=== PATIENT | female | born 1985 | race Caucasian/White ===

== ENCOUNTER 2020-02-06 10:46 | Outpatient (CLI) | payer OTHER, SELFPAY ==
[2020-02-07 06:44] LABS: SARS-CoV-2 RNA PCR Negative
== END 2020-02-06 10:47 | disposition home or self-care (01) ==
LOC: CHSLAB 10:51
PROVIDERS: Visit Provider Physician Assistant
DX: R68.89 Other general symptoms and signs (principal); Z20.828 Contact with and (suspected) exposure to other viral communicable diseases
CPT/HCPCS: 87635; C9803; U0003

== ENCOUNTER 2020-02-18 17:48 | Outpatient (CLI) | payer OTHER, SELFPAY ==
[2020-02-20 18:30] LABS: SARS-CoV-2 RNA PCR Negative
== END 2020-02-18 17:49 | disposition home or self-care (01) ==
LOC: CHSLAB 17:51
PROVIDERS: PCP Family Medicine; Visit Provider Family Medicine
DX: R68.89 Other general symptoms and signs (principal)
CPT/HCPCS: 87635; C9803; U0003

== ENCOUNTER 2020-09-08 11:00 | Outpatient (RCR) | payer OTHER, SELFPAY ==
[2020-09-08 10:14] VITALS: BMI 41.0
[2020-09-08 10:21] VITALS: BMI 41.0
== END 2020-11-24 07:07 | disposition home or self-care (01) ==
LOC: ANHDMC 11:00
PROVIDERS: PCP Family Medicine; Visit Provider Obstetrics & Gynecology
DX: O24.319 Unspecified pre-existing diabetes mellitus in pregnancy, unspecified trimester (principal); Z3A.00 Weeks of gestation of pregnancy not specified; Z71.89 Other specified counseling; Z71.3 Dietary counseling and surveillance
CPT/HCPCS: 97802; G0108

== ENCOUNTER 2020-09-16 16:07 | Outpatient (CLI) | payer OTHER, SELFPAY ==
[2020-09-16 16:29] VITALS: BP 138/95; PULSE 113
[2020-09-16 16:31] VITALS: BP 129/82; PULSE 108
[2020-09-16 16:46] VITALS: BP 135/90; PULSE 101
[2020-09-16 16:55] LABS: Basophils Percent Auto 0.1 % (0.2-1.2); Eosinophils Absolute Auto 0.1 K/mm3 (0-0.3); Eosinophils Percent Auto 0.4 % (0-4.4); Hematocrit 36.6 % (37.0-47.0); Hemoglobin 12.4 g/dL (12.0-15.0); Immature Granulocyte Absolute 0.04 K/mm3 (0.00-0.031); Immature Granulocyte Percent A 0.4 % (0-0.5); Lymphocytes Absolute Auto 2.63 K/mm3 (0.9-3.2); Lymphocytes Percent Auto 23.6 % (18.3-44.2); Mean Corpuscular HGB Conc 33.9 g/dl (32-36); Mean Corpuscular Hemoglobin 29.4 pg (26-34); Mean Corpuscular Volume 86.7 fl (80-100); Monocytes Absolute Auto 0.6 K/mm3 (0.1-0.6); Monocytes Percent Auto 5.5 % (2.6-8.5); Neutrophils Absolute Auto 7.8 K/mm3 (1.3-6.7); Platelet Count Result 187 k/mm3 (150-375); Red Blood Count 4.22 M/mm3 (4.2-5.4); White Blood Count 11.2 K/mm3 (4.5-10.0)
[2020-09-16 17:01] VITALS: BP 130/83; PULSE 92
[2020-09-16 17:02] LABS: Add Urine Microscopic? YES; Appearance Urine Cloudy (Clear); Bacteria Urine 1+ /hpf; Bilirubin Urine Negative (Negative); Blood Urine Negative (Negative); Color Urine Yellow (Yellow); Glucose Urine UA Negative (Negative); Ketones Urine Negative (Negative); Leukocyte Esterase Ur Trace LEU/UL (NEGATIVE); Mucus Urine Rare /lpf; Nitrate Urine Negative (Negative); Protein Urine Negative (Negative); Specific Grav Ur 1.009 (1.001-1.035); Squamous Epithelial Cell Urine Many /hpf (Few); Urobilinogen Urine Negative mg/dL (<2.0); WBC Urine 0-3 /hpf (0-3)
[2020-09-16 17:08] LABS: Alanine Aminotransferase 15 U/L (4-35); Albumin Level 3.3 g/dL (3.5-5.1); Alkaline Phosphatase 139 U/L (38-126); Anion Gap 7 mmol/L (8-16); Aspartate Amino Transferase 27 U/L (14-36); Bilirubin,Total 0.2 mg/dL (0.2-1.3); Blood Urea Nitrogen 5 mg/dL (7-17); Calcium 8.7 mg/dL (8.4-10.2); Carbon Dioxide 19 mmol/L (22-30); Chloride 110 mmol/L (98-107); Estimated Glomerular Filt Rate > 60; Glucose 159 mg/dL (65-105); Potassium 3.7 mmol/L (3.4-5.0); Sodium 136 mmol/L (137-145); Uric Acid 4.2 mg/dL (2.5-7.5)
[2020-09-16 17:10] LABS: Creatinine Urine 68.4 mg/dL; Total Protein Urine Random 14 mg/dL
== END 2020-09-16 17:15 | disposition home or self-care (01) ==
LOC: ANHOBOP 16:12 → ANHLDR 16:13
PROVIDERS: PCP Family Medicine; Visit Provider Obstetrics & Gynecology
DX: O13.9 Gestational [pregnancy-induced] hypertension without significant proteinuria, unspecified trimester (principal); Z3A.00 Weeks of gestation of pregnancy not specified
CPT/HCPCS: 36415; 59025; 80053; 81001; 82570; 84156; 84550; 85025; 87086; 87088; 99199

== ENCOUNTER 2020-09-28 15:45 | Outpatient (CLI) | payer OTHER, SELFPAY ==
[2020-09-28] VITALS (11 sets, daily range): BP systolic 143–161; BP diastolic 83–92; PULSE 88–99
[2020-09-28 16:33] LABS: Basophils Percent Auto 0.1 % (0.2-1.2); Eosinophils Percent Auto 0.4 % (0-4.4); Hemoglobin 12.1 g/dL (12.0-15.0); Immature Granulocyte Absolute 0.05 K/mm3 (0.00-0.031); Immature Granulocyte Percent A 0.5 % (0-0.5); Lymphocytes Absolute Auto 2.14 K/mm3 (0.9-3.2); Lymphocytes Percent Auto 19.9 % (18.3-44.2); Mean Corpuscular HGB Conc 33.6 g/dl (32-36); Mean Corpuscular Hemoglobin 29.6 pg (26-34); Mean Platelet Volume 12.4 fl (7.4-10.4); Monocytes Absolute Auto 0.5 K/mm3 (0.1-0.6); Monocytes Percent Auto 4.9 % (2.6-8.5); Neutrophils Percent Auto 74.2 % (45.5-73.1); Platelet Count Result 149 k/mm3 (150-375); Red Blood Count 4.09 M/mm3 (4.2-5.4); Red Cell Distribution Width 13.2 % (11.5-14.5); White Blood Count 10.8 K/mm3 (4.5-10.0)
[2020-09-28 16:40] LABS: Add Urine Microscopic? YES; Appearance Urine Cloudy (Clear); Bacteria Urine 1+ /hpf; Bilirubin Urine Negative (Negative); Blood Urine Negative (Negative); Color Urine Yellow (Yellow); Glucose Urine UA Negative (Negative); Ketones Urine Negative (Negative); Leukocyte Esterase Ur Trace LEU/UL (NEGATIVE); Nitrate Urine Negative (Negative); Protein Urine Negative (Negative); Specific Grav Ur 1.008 (1.001-1.035); Squamous Epithelial Cell Urine Many /hpf (Few); Urobilinogen Urine Negative mg/dL (<2.0)
[2020-09-28 16:46] LABS: Alanine Aminotransferase 17 U/L (4-35); Albumin Level 3.2 g/dL (3.5-5.1); Alkaline Phosphatase 157 U/L (38-126); Anion Gap 5 mmol/L (8-16); Aspartate Amino Transferase 33 U/L (14-36); Bilirubin,Total 0.2 mg/dL (0.2-1.3); Blood Urea Nitrogen 7 mg/dL (7-17); Calcium 8.8 mg/dL (8.4-10.2); Carbon Dioxide 22 mmol/L (22-30); Chloride 109 mmol/L (98-107); Estimated Glomerular Filt Rate > 60; Glucose 79 mg/dL (65-105); Potassium 3.8 mmol/L (3.4-5.0); Sodium 136 mmol/L (137-145); Uric Acid 5.2 mg/dL (2.5-7.5)
[2020-09-28] MEDS: LABETALOL HCL 100 MG TABLET PO (17:17)
[2020-09-28 17:19] LABS: Creatinine Urine 51.7 mg/dL; Total Protein Urine Random 17 mg/dL; Ur Ttl Prot Creatinine Ratio 0.33 mg/mg (0-0.20)
--- NOTE | 2020-09-29 06:32 | PM.OBTRLD ---
OB - Triage/Final Diagnosis Visit Information Date of evaluation: 09/28/20 Reason for evaluation: other (Gestational hypertension) Comments/Additional reasons for admission: I have assessed the risk for this patient, Carine Gruber, and determined that she would benefit from observation care. Evaluation Laboratory results: Laboratory Tests 09/28/20 09/28/20 09/28/20 16:18 16:18 16:18 WBC 10.8 H RBC 4.09 L Hgb 12.1 Hct 36.0 L MCV 88.0 MCH 29.6 MCHC 33.6 RDW 13.2 Plt Count 149 L MPV 12.4 H Immature Gran % (Auto) 0.5 Neut % (Auto) 74.2 H Lymph % (Auto) 19.9 Harlan % (Auto) 4.9 Eos % (Auto) 0.4 Baso % (Auto) 0.1 L Lymph # (Auto) 2.14 Harlan # (Auto) 0.5 Eos # (Auto) 0.0 Baso # (Auto) 0.0 Abs Immat Gran (auto) 0.05 H Absolute Neuts (auto) 8.0 H Absolute Nucleated RBC 0.0 Nucleated RBC % 0.0 Sodium 136 L Potassium 3.8 Chloride 109 H Carbon Dioxide 22 Anion Gap 5 L BUN 7 Creatinine 0.60 L Estim Creat Clear Calc Not Reportable Estimated GFR > 60 Glucose 79 Uric Acid 5.2 Calcium 8.8 Total Bilirubin 0.2 AST 33 ALT 17 Alkaline Phosphatase 157 H Total Protein 6.0 L Albumin 3.2 L Urine Color Urine Appearance Urine pH Ur Specific Mcrae Urine Protein Urine Glucose (UA) Urine Ketones Ur Blood (Man) Urine Nitrate Urine Bilirubin Urine Urobilinogen Ur Leukocyte Esterase Urine RBC Urine WBC Ur Squamous Epith Cells Urine Bacteria U Random Total Protein 17 Urine Creatinine 51.7 Protein/Creat Ratio 2 0.33 H 09/28/20 16:18 WBC RBC Hgb Hct MCV MCH MCHC RDW Plt Count MPV Immature Gran % (Auto) Neut % (Auto) Lymph % (Auto) Harlan % (Auto) Eos % (Auto) Baso % (Auto) Lymph # (Auto) Harlan # (Auto) Eos # (Auto) Baso # (Auto) Abs Immat Gran (auto) Absolute Neuts (auto) Absolute Nucleated RBC Nucleated RBC % Sodium Potassium Chloride Carbon Dioxide Anion Gap BUN Creatinine Estim Creat Clear Calc Estimated GFR Glucose Uric Acid Calcium Total Bilirubin AST ALT Alkaline Phosphatase Total Protein Albumin Urine Color Yellow Urine Appearance Cloudy H Urine pH 6.0 Ur Specific Mcrae 1.008 Urine Protein Negative Urine Glucose (UA) Negative Urine Ketones Negative Ur Blood (Man) Negative Urine Nitrate Negative Urine Bilirubin Negative Urine Urobilinogen Negative Ur Leukocyte Esterase Trace H Urine RBC 3-5 H Urine WBC 7-9 H Ur Squamous Epith Cells Many H Urine Bacteria 1+ H U Random Total Protein Urine Creatinine Protein/Creat Ratio 2 Vital signs: Vital Signs - 24 hr 09/28/20 16:12 09/28/20 16:16 09/28/20 16:31 Pulse Rate 91 95 89 Blood Pressure 151/91 H 161/92 H 153/92 H Blood Pressure [Left Arm] 09/28/20 16:46 09/28/20 17:01 09/28/20 17:16 Pulse Rate 88 88 99 Blood Pressure 143/91 H 146/90 H 151/89 H Blood Pressure [Left Arm] 09/28/20 17:17 09/28/20 17:27 09/28/20 17:31 Pulse Rate 95 99 95 Blood Pressure 145/91 H Blood Pressure [Left Arm] 151/89 H 09/28/20 17:46 09/28/20 18:01 Pulse Rate 88 90 Blood Pressure 147/83 H 153/89 H Blood Pressure [Left Arm]
== END 2020-09-28 18:09 | disposition home or self-care (01) ==
LOC: ANHOBOP 15:51 → ANHOBPP 15:57
PROVIDERS: PCP Family Medicine; Visit Provider Obstetrics & Gynecology
DX: O13.9 Gestational [pregnancy-induced] hypertension without significant proteinuria, unspecified trimester (principal)
CPT/HCPCS: 36415; 59025; 80053; 81001; 82570; 84156; 84550; 85025; 87086; 87088; 99199; A9270

== ENCOUNTER 2020-10-06 15:52 | Inpatient (IN) | payer OTHER, SELFPAY ==
[2020-10-06] VITALS (34 sets, daily range): BP systolic 120–185; BP diastolic 65–105; PULSE 90–104; TEMP 36.4; O2SAT 94; BMI 47.5
--- NOTE | ~2020-10-06 | XR_ITS ---
EXAMINATION: XR chest 1V portable INDICATION: Hypoxia, shortness of breath TECHNIQUE: Portable AP chest at 1322 hours COMPARISON: None available FINDINGS: There are minimal opacities of the mid and lower lung zones. No pleural effusion or pneumot horax is identified. The cardiomediastinal silhouette is normal. The visualized osseous structures ar e unremarkable. IMPRESSION: 1. Minimal opacities of the mid and lower lung zones, likely atelectasis. Reviewed, dictated and finalized at location B.
[2020-10-06 16:39] LABS: Basophils Percent Auto 0.2 % (0.2-1.2); Eosinophils Absolute Auto 0.1 K/mm3 (0-0.3); Eosinophils Percent Auto 0.7 % (0-4.4); Hematocrit 35.1 % (37.0-47.0); Hemoglobin 11.7 g/dL (12.0-15.0); Immature Granulocyte Absolute 0.07 K/mm3 (0.00-0.031); Immature Granulocyte Percent A 0.7 % (0-0.5); Lymphocytes Absolute Auto 2.06 K/mm3 (0.9-3.2); Lymphocytes Percent Auto 19.7 % (18.3-44.2); Mean Corpuscular HGB Conc 33.3 g/dl (32-36); Mean Corpuscular Hemoglobin 29.8 pg (26-34); Mean Corpuscular Volume 89.3 fl (80-100); Mean Platelet Volume 12.2 fl (7.4-10.4); Monocytes Absolute Auto 0.7 K/mm3 (0.1-0.6); Monocytes Percent Auto 6.6 % (2.6-8.5); Neutrophils Absolute Auto 7.5 K/mm3 (1.3-6.7); Neutrophils Percent Auto 72.1 % (45.5-73.1); Platelet Count Result 156 k/mm3 (150-375); Red Blood Count 3.93 M/mm3 (4.2-5.4); Red Cell Distribution Width 13.3 % (11.5-14.5); White Blood Count 10.5 K/mm3 (4.5-10.0)
--- NOTE | 2020-10-06 16:44 | PM.IMHP ---
H&P: HPI History of Present Illness Date/Time: 10/06/20 16:44 34 yo at 35w4d who presents with severe preeclampsia. Pt was seen in the office today and noted to have severe range BP. Pt was started on Labetalol 200 mg BID approximately 2 wks ago. She states her BP have not been controlled. Pt had PIH labs performed last week and she ruled in for preeclampsia. Pt has had 3+ pitting edema that has not resolved with rest. Pt denies any CARDOSO, scotoma or RUQ pain. Pt also complicated by GDM on glyburide. Chief Complaint: severe preeclampsia intrauterine at 35w gestational diabetes Review of Systems Review of Systems: All systems reviewed & are unremarkable except as noted in HPI and below PMFSH Family History Family History Other Diabetes mellitus Family history of malignant neoplasm of breast Social History Social History (Updated 05/20/19 @ 15:46 by Dominique Estrada) Social History: Smoking status: Never smoker Second hand tobacco smoke exposure: No Alcohol intake: current Alcohol use details: rarely Substance use: never Substance use type: does not use Gender identity (if verbalized by the patient): Female Spiritual care concerns: No Meds Home Medications and Allergies Home Medications Medication Instructions Recorded Confirmed Type cholecalciferol (vitamin D3) 50,000 unit PO WEEKLY 09/28/20 09/28/20 History glyburide 5 mg DAILY 09/28/20 09/28/20 History labetalol 100 mg PO Q12H 30 Days #60 tablet 09/28/20 Rx Allergies Allergy/AdvReac Type Severity Reaction Status Date / Time No Known Allergies Allergy Unverified 05/20/19 08:17 Vital Signs Vital Signs - 24 hr 10/06/20 16:26 10/06/20 16:30 Pulse Rate 98 100 Blood Pressure 185/104 H 185/105 H Exam Const: General: cooperative, healthy appearing and comfortable Resp: Effort & Inspection: normal respiratory effort and able to speak in complete sentences Auscultation: clear to auscultation bilaterally Cardio: Jugular venous distension: no JVD Rate: regular rate Rhythm: regular rhythm GI: Inspection: normal to inspection GI Palp: Yes Soft to palpation and No Tenderness to palpation present (GI) : Speculum Exam - Vagina: normal appearance of the vagina Speculum Exam - Cervix: normal appearance of the cervix and Cervical os closed OB/external & speculum: external exam normal Manual OB Exam: Not dilated nor effaced Back/Spine/Pelvis: Back: no CVA tenderness Skin: General skin exam: normal color and no rashes or lesions noted Neuro: General: patient oriented x3 Extrem: General: edema Right lower extremity: edema Left lower extremity: edema Psych: Appearance: grossly normal Mental Status: mental status grossly normal Speech and movement: Normal speech and movement present Affect: normal affect Attitude: cooperative H&P: Results Labs Labs: Short CBC 10/06/20 Range/Units 16:24 WBC 10.5 H (4.5-10.0) K/mm3 Hgb 11.7 L (12.0-15.0) g/dL Hct 35.1 L (37.0-47.0) % Plt Count 156 (150-375) k/mm3 Assessment and Plan Assessment and plan (1) Supervision of high risk , unspecified, third trimester: Code(s): O09.93 - Supervision of high risk , unspecified, third trimester Status: Acute Assessment and Plan: 34 yo at 35w3d Rh+ GBS unknown severe PreE GDM FHT cat 1 cvx closed no contraction on toco continuous EFM (2) Gestational diabetes: Code(s): O24.419 - Gestational diabetes mellitus in , unspecified control Status: Acute Assessment and Plan: GCT 160, GTT failed pt on glyburide 5mg daily (3) Severe preeclampsia: Code(s): O14.10 - Severe pre-eclampsia, unspecified trimester Status: Acute Assessment and Plan: pt with severe range BP urine protein:creatinine ratio 0.33 3+ pitting edema pt BP refra
[2020-10-06 16:45] LABS: Add Urine Microscopic? YES; Appearance Urine Clear (Clear); Bacteria Urine Trace /hpf; Bilirubin Urine Negative (Negative); Blood Urine Negative (Negative); Color Urine Straw (Yellow); Glucose Urine UA Negative (Negative); Ketones Urine Negative (Negative); Leukocyte Esterase Ur Negative LEU/UL (NEGATIVE); Nitrate Urine Negative (Negative); Protein Urine 2+ mg/dL (Negative); RBC Urine 0-2 /hpf (0-2); Squamous Epithelial Cell Urine Occasional /hpf (Few); Total Protein Urine Random 74 mg/dL; Ur Ttl Prot Creatinine Ratio 3.52 mg/mg (0-0.20); Urobilinogen Urine Negative mg/dL (<2.0); WBC Urine 0-3 /hpf (0-3)
[2020-10-06 16:48] LABS: Alanine Aminotransferase 76 U/L (4-35); Alkaline Phosphatase 151 U/L (38-126); Anion Gap 7 mmol/L (8-16); Aspartate Amino Transferase 85 U/L (14-36); Bilirubin,Total 0.4 mg/dL (0.2-1.3); Blood Urea Nitrogen 11 mg/dL (7-17); Calcium 9.1 mg/dL (8.4-10.2); Carbon Dioxide 22 mmol/L (22-30); Chloride 107 mmol/L (98-107); Estimated Glomerular Filt Rate > 60; Glucose 69 mg/dL (65-110); Sodium 136 mmol/L (137-145); Specific Grav Ur 1.004 (1.001-1.035); Uric Acid 5.9 mg/dL (2.5-7.5)
[2020-10-06] MEDS: MAGNESIUM SULF 6 GM/WATER150ML 6 GM/150 ML BAG IVPB (18:07)
[2020-10-06] MEDS: LABETALOL HCL INJ 100 MG/20 ML VIAL 20 MG IV PUSH (18:08)
[2020-10-06] MEDS: AMPICILLIN 2 GM/NS 100 ML 2 GM/100 ML BAG IVPB (18:08)
[2020-10-06] MEDS: LACTATED RINGERS 1,000 ML 125 ML IV CONT (18:08)
[2020-10-06] MEDS: LABETALOL HCL INJ 100 MG/20 ML VIAL 40 MG IV PUSH (18:40)
[2020-10-06] MEDS: MAGNESIUM SULF 20GM/WATER500ML 500 ML 50 MG IV CONT (18:40)
[2020-10-06] MEDS: LABETALOL HCL INJ 100 MG/20 ML VIAL 80 MG IV PUSH (19:11)
[2020-10-06] MEDS: DINOPROSTONE 10 MG VAG INSERT VAGINAL (19:14)
[2020-10-06] MEDS: BETAMETHASONE SOD PHOS/ACETATE 30 MG/5 ML VIAL 12 MG IM (19:30)
[2020-10-06] MEDS: ONDANSETRON INJ 4 MG/2 ML VIAL IV PUSH (20:57)
--- NOTE | 2020-10-06 20:58 | LDADM ---
This patient, Carine Gruber, was admitted to Labor/Delivery/Recovery 102 on at 15:51. Plans for labor, pain management and were discussed with patient. Patient/family oriented to hospital policies and general routines including ID bracelet, bed and alarms, visiting hours, pain management, procedures, bathroom and other care routines, personal items, smoking policy, room service/diet and guest tray routines, infant security routines, and visiting hours. Patient/Family are encouraged to report perceived risks to care and to ask questions if they do not understand what they are told or what they should do. See OBIX for further documentation.
[2020-10-06 21:28] LABS: Glucose Point of Care 98 mg/dl (65-105)
[2020-10-06] MEDS: AMPICILLIN 1 GM/NS 50 ML 1 GM/50 ML BAG IVPB (22:25)
[2020-10-06] MEDS: fentaNYL CITRATE INJ (*CRX) 100 MCG/2 ML VIAL IV PUSH (23:47)
[2020-10-07] VITALS (338 sets, daily range): BP systolic 116–192; BP diastolic 54–118; PULSE 94–123; RESP 15–16; TEMP 36.7–37.2; O2SAT 91–99
[2020-10-07] MEDS: fentaNYL CITRATE INJ (*CRX) 100 MCG/2 ML VIAL IV PUSH ×3 (01:00→03:24)
[2020-10-07] MEDS: MAGNESIUM SULF 20GM/WATER500ML 500 ML 50 MG IV CONT ×2 (01:57→09:57)
[2020-10-07 02:26] LABS: Glucose Point of Care 111 mg/dl (65-105)
[2020-10-07] MEDS: LACTATED RINGERS 1,000 ML 125 ML IV CONT ×2 (04:08→09:57)
--- NOTE | 2020-10-07 05:10 | WPDANESEPPF ---
Anes - Initial Pre Proc Eval Procedure: labor epidural Date/Time: 10/07/20 05:10 Surgeon: Francisco Sherman MD Pre Op Diagnosis: labor pain Pre Op Diagnosis: hypertension in preg Patient Data Age: 34 Gender: F Height: 1.55 m Weight: 114 kg Last Vital Signs Temp 37.2 C 10/07/20 05:01 Pulse 110 H 10/07/20 05:08 Resp 16 10/07/20 02:00 BP 164/95 H 10/07/20 05:08 Pulse Ox 96 10/07/20 05:08 Allergies Allergy/AdvReac Type Severity Reaction Status Date / Time No Known Allergies Allergy Unverified 05/20/19 08:17 Home Medications Medication Instructions Recorded Confirmed Type cholecalciferol (vitamin D3) 50,000 unit PO WEEKLY 09/28/20 10/06/20 History glyburide 5 mg PO DAILY 09/28/20 10/06/20 History labetalol 200 mg PO Q12H 10/06/20 10/06/20 History Laboratory Tests 10/06/20 10/06/20 10/06/20 16:24 16:24 16:24 WBC 10.5 K/mm3 H K/mm3 (4.5-10.0) RBC 3.93 M/mm3 L M/mm3 (4.2-5.4) Hgb 11.7 g/dL L g/dL (12.0-15.0) Hct 35.1 % L % (37.0-47.0) MCV 89.3 fl fl (80-100) MCH 29.8 pg pg (26-34) MCHC 33.3 g/dl g/dl (32-36) RDW 13.3 % % (11.5-14.5) Plt Count 156 k/mm3 k/mm3 (150-375) MPV 12.2 fl H fl (7.4-10.4) Immature Gran % (Auto) 0.7 % H % (0-0.5) Neut % (Auto) 72.1 % % (45.5-73.1) Lymph % (Auto) 19.7 % % (18.3-44.2) Worth % (Auto) 6.6 % % (2.6-8.5) Eos % (Auto) 0.7 % % (0-4.4) Baso % (Auto) 0.2 % % (0.2-1.2) Lymph # (Auto) 2.06 K/mm3 K/mm3 (0.9-3.2) Worth # (Auto) 0.7 K/mm3 H K/mm3 (0.1-0.6) Eos # (Auto) 0.1 K/mm3 K/mm3 (0-0.3) Baso # (Auto) 0.0 K/mm3 K/mm3 (0.0-0.1) Abs Immat Gran (auto) 0.07 K/mm3 H K/mm3 (0.00-0.031) Absolute Neuts (auto) 7.5 K/mm3 H K/mm3 (1.3-6.7) Absolute Nucleated RBC 0.0 K/mm3 K/mm3 (0.0-0.012) Nucleated RBC % 0.0 % % (0.0-0.2) Sodium Potassium Chloride Carbon Dioxide Anion Gap BUN Creatinine Estim Creat Clear Calc Estimated GFR Glucose POC Capillary Glucose Uric Acid Calcium Total Bilirubin AST ALT Alkaline Phosphatase Total Protein Albumin Urine Color Straw (Yellow) Urine Appearance Clear (Clear) Urine pH 7.0 (5.0-9.0) Ur Specific Amasa 1.004 (1.001-1.035) Urine Protein 2+ mg/dL H mg/dL (Negative) Urine Glucose (UA) Negative mg/dL mg/dL (Negative) Urine Ketones Negative mg/dL mg/dL (Negative) Ur Blood (Man) Negative (Negative) Urine Nitrate Negative (Negative) Urine Bilirubin Negative (Negative) Urine Urobilinogen Negative mg/dL mg/dL (<2.0) Ur Leukocyte Esterase Negative CLARIBEL/UL CLARIBEL/UL (NEGATIVE) Urine RBC 0-2 /hpf /hpf (0-2) Urine WBC 0-3 /hpf /hpf (0-3) Ur Squamous Epith Cells Occasional /hpf /hpf (Few) Urine Bacteria Trace /hpf /hpf U Random Total Protein 74 mg/dL mg/dL Urine Creatinine 21.0 mg/dL mg/dL Protein/Creat Ratio 2 3.52 mg/mg H mg/mg (0-0.20) RPR Blood Type Antibody Screen 10/06/20 10/06/20 10/06/20 16:24 20:32 20:32 WBC RBC Hgb Hct MCV MCH MCHC RDW Plt Count MPV Immature Gran % (Auto) Neut % (Auto) Lymph % (Auto) Worth % (Auto) Eos % (Auto) Baso % (Auto) Lymph # (Auto) M
[2020-10-07 06:30] LABS: Glucose Point of Care 115 mg/dl (65-105)
[2020-10-07] MEDS: BETAMETHASONE SOD PHOS/ACETATE 30 MG/5 ML VIAL 12 MG IM (07:19)
--- NOTE | 2020-10-07 07:39 | PM.OBPNLAB ---
Pain Control Date/time seen: 10/07/20 07:39 Pain control: tolerating well and epidural Comments: Pt denies any SOB, CP, change in vision. Pelvic Exam Dilation (cm): 2 Effacement (%): 70 station: -3 Amniotic membrane status: Intact Contractions Monitor mode: External Contraction frequency: 4 Contraction pattern: Regular Status status: Category l Comments: baseline 125, mod variability, negative decel, occasional accelerations Assessment and Plan Assessment: induction ongoing Plan: begin patient augmentation Comments: AROM for clear fluid. IUPC placed. will start pitocin. will continue magnesium. Pt BP mild range. will continue to monitor
[2020-10-07 08:17] LABS: Rapid Plasma Reagin Non-Reactive (NonReactive)
[2020-10-07 09:07] LABS: Glucose Point of Care 99 mg/dl (65-105)
[2020-10-07] MEDS: AMPICILLIN 1 GM/NS 50 ML 1 GM/50 ML BAG IVPB ×3 (09:56→22:50)
[2020-10-07] MEDS: OXYTOCIN 30 UNITS/NS 500 ML 30 UNITS/500 ML BAG 6 UNITS IV CONT (09:57)
[2020-10-07 14:18] LABS: Glucose Point of Care 87 mg/dl (65-105)
[2020-10-07 16:22] LABS: Glucose Point of Care 86 mg/dl (65-105)
[2020-10-07 16:48] LABS: Magnesium 6.6 mg/dL (1.6-2.3)
--- NOTE | 2020-10-07 17:00 | PM.OBPNLAB ---
Pain Control Date/time seen: 10/07/20 1700 Comfortable with epidural. AVSS (BP 150/90 range) NST good variability, good response to scalp stim TOCO: contractions every 2-4 min Cervix 4/90/-1. Replaced IUPC. Continue labor
[2020-10-07] MEDS: LABETALOL HCL INJ 100 MG/20 ML VIAL 20 MG IV PUSH (18:25)
[2020-10-07 18:51] LABS: Glucose Point of Care 90 mg/dl (65-105)
[2020-10-07 21:42] LABS: Glucose Point of Care 81 mg/dl (65-105)
[2020-10-08] VITALS (297 sets, daily range): BP systolic 121–195; BP diastolic 62–105; PULSE 68–114; RESP 14–20; TEMP 36–37.2; O2SAT 82–100
[2020-10-08] MEDS: LORATADINE 10 MG TABLET PO
[2020-10-08 01:41] LABS: Glucose Point of Care 88 mg/dl (65-105)
[2020-10-08] MEDS: MAGNESIUM SULF 20GM/WATER500ML 500 ML 50 MG IV CONT ×2 (01:41→15:44)
[2020-10-08] MEDS: LACTATED RINGERS 1,000 ML 125 ML IV CONT (01:43)
[2020-10-08 04:01] LABS: Glucose Point of Care 80 mg/dl (65-105)
[2020-10-08] MEDS: AMPICILLIN 1 GM/NS 50 ML 1 GM/50 ML BAG IVPB (06:57)
[2020-10-08] MEDS: LABETALOL HCL INJ 100 MG/20 ML VIAL 20 MG IV PUSH ×4 (07:10→12:25)
--- NOTE | 2020-10-08 07:15 | P.PNOB_ITS ---
Pain Control Date/time seen: 10/08/20 07:15 Pain control: epidural Comments: Pt is not tolerating IOL. Pt is becoming more uncomfortable and her blood pressures are becoming more unstable. Pt complained last night of blurred vision and her magnesium was turned down. Pt is wanted to proceed with delivery. Pelvic Exam Dilation (cm): 7 Effacement (%): 90 station: -3 Amniotic membrane status: Ruptured Contractions Monitor mode: External Contraction frequency: 4 Contraction pattern: Regular Status status: Category l Assessment and Plan Plan: Comments: Pt intolerable of IOL. BP have increased to severe range requiring IV antihypertensives. cervix is unchanged after almost 24 hrs of pitocin. risks, benefits and alternatives to discussed. will proceed with primary c- section for severe preeclampsia and failed IOL with arrest of dilation.
--- NOTE | 2020-10-08 07:21 | WPDANESEFPP ---
Anes - Eval Final PreProcedure Day of Procedure 10/08/20 07:21 Patient weight: morbidly obese Heart: regular rate and rhythm Lungs: clear to auscultation and normal air movement Airway: Mallampati scale class II Neurological: alert and oriented Last oral intake: >/= 8 hours ASA classification: III Emergent: no Anesthetic plan: proceed Anesthesia type and monitoring: regional epidural and standard monitoring Other findings: C/S for arrest of dilation Informed Consent: The patient's anesthetic plan and its attendant risks and benefits were discussed with the patient/family/POA. Questions were solicited and answers provided to the satisfaction of the patient/family/POA.
[2020-10-08] MEDS: ceFAZolin 3 GM/D5W 100 ML 100 ML IVPB (07:26)
[2020-10-08 07:40] LABS: Glucose Point of Care 85 mg/dl (65-105)
--- NOTE | 2020-10-08 08:24 | SUR.OPER ---
Dr. Gonzalez would like to keep pt's epidural catheter in for now.
[2020-10-08] MEDS: OXYTOCIN 30 UNITS/NS 500 ML 30 UNITS/500 ML BAG 75 UNITS IV CONT (10:20)
--- NOTE | 2020-10-08 12:23 | W.PM.PROC2 ---
Procedure Note - Detailed Date of Procedure 10/08/20 Pre-op Diagnosis severe preeclampsia arrest of dilation gestational diabetes Post-op Diagnosis same Procedure Performed low transverse section Surgeon Francisco Sherman MD Anesthesia spinal and epidural Description of Procedure The patient was taken to the operating room. A combined spinal epidural anesthesic was administered and found to be adequate at a t-10 level. The patient was placed in a supine position with a slight left lateral tilt. A banegas catheter was placed with return of clear urine. A Bovie grounding pad was placed. Surgical prep was performed and surgical drapes were placed. A surgical time out was performed. A Pfannenstiel skin incision was then made with the scalpel and carried through to the underlying layer of fascia. The fascia was then incised in the midline and the incision was extended laterally with the Lara scissors. The superior aspect of the fascia was then grasped with the Maurice clamps, elevated, and the underlying rectus muscles dissected off bluntly and sharply. Attention was then turned to the inferior aspect of this incision which, in a similar fashion, was grasped, tented up with the Maurice clamps, and the rectus muscles dissected off both bluntly and sharply. The rectus muscles were then in the midline. The peritoneum was identified and entered bluntly. The peritoneal incision was then extended superiorly and inferiorly with good visualization of the bladder. The vesico-uterine serosa was identified and dissected to create a bladder flap. The bladder blade was reinserted. The uterus was inspected for rotation. A low-transverse uterine incision was made sharply with the scalpel and entry was made into the uterine cavity. An amniotomy was made and copious amounts of clear fluid were noted on return. The uterine incision was extended laterally bluntly. The bladder blade was removed and the fetus was delivered atraumatically. The nose and mouth were suctioned with a bulb syringe. The umbilical cord was clamped twice and cut. The infant was handed off to the waiting staff. At the time of the delivery, the had good color, tone and grimace. The infant cried with minimal stimulation. A second segment of umbilical cord was clamped and cut for cord blood gasses. Cord blood was collected for determination of the blood type and for direct Raymond. The placenta was delivered spontaneously without difficulty. The placenta appeared grossly normal and complete. The uterus was exteriorized and cleared of all clots and debris. The uterine incision was repaired using 0-monocryl suture in a running fashion. A second layer of 0 Monocryl suture was used in an imbricating fashion to obtain excellent hemostasis and uterine strength. The uterine closure was inspected for hemostasis. Hemoderm was applied to the hysterotomy to ensure hemostasis. The posterior aspect of the uterus and the broad ligaments were inspected and the posterior cul-de-sac cleared of fluid and blood clots. The uterine closure was again inspected and found to be hemostatic. The uterus was returned to the abdominal cavity. The pericolic gutters were inspected and were cleared of all blood clots and debris. The uterine closure was then re inspected to ensure hemostasis as were all subfascial tissues. The peritoneum was closed using 3-0 vicryl in a running fashion. The fascia was reapproximated with 0-vicryl in a running fashion. The subcutaneous tissue was irrigated and hemostasis achieved with electrocautery. It was reapproximated with 3-0 vicryl in a running fashion. The skin was closed with 4-0 vicryl in a subcuticular fashion. A sterile dressing was applied to the wound. The patient tolerated the procedure well. Sponge, lap and needle counts were correct times three. The patient was taken to recovery in stable condition and without anticipated complications. Estimated Blood Loss -925.0 Urine
--- NOTE | 2020-10-08 13:02 | PC.NURSE ---
Dr. Sherman informed that while pt is sleeping, her sats are 92-93% and after expiration, she appears to use abdominal muscles before inspiration. Updated on BP's. Order received for chest x-ray.
[2020-10-08] MEDS: LABETALOL HCL 100 MG TABLET 200 MG PO ×2 (13:05→21:15)
--- NOTE | 2020-10-08 13:21 | PC.NURSE ---
Radiology here to perform portable chest x-ray
--- NOTE | 2020-10-08 13:37 | PC.NURSE ---
Dr. Sherman informed of BP's in relation to Labetalol IV and Labetalol PO doses. wants to give a dose of Lasix next and not give any additional IV Labetalol at this time for BP that was 171/100 and now 167/104. To draw labs again.
[2020-10-08 14:09] LABS: Basophils Percent Auto 0.2 % (0.2-1.2); Hematocrit 31.3 % (37.0-47.0); Hemoglobin 10.5 g/dL (12.0-15.0); Immature Granulocyte Absolute 0.14 K/mm3 (0.00-0.031); Immature Granulocyte Percent A 0.7 % (0-0.5); Lymphocytes Percent Auto 6.7 % (18.3-44.2); Mean Corpuscular HGB Conc 33.5 g/dl (32-36); Mean Corpuscular Hemoglobin 30.1 pg (26-34); Mean Corpuscular Volume 89.7 fl (80-100); Mean Platelet Volume 12.1 fl (7.4-10.4); Monocytes Absolute Auto 0.9 K/mm3 (0.1-0.6); Monocytes Percent Auto 4.7 % (2.6-8.5); Neutrophils Absolute Auto 16.9 K/mm3 (1.3-6.7); Neutrophils Percent Auto 87.7 % (45.5-73.1); Platelet Count Result 156 k/mm3 (150-375); Red Blood Count 3.49 M/mm3 (4.2-5.4); Red Cell Distribution Width 13.3 % (11.5-14.5); White Blood Count 19.3 K/mm3 (4.5-10.0)
[2020-10-08] MEDS: FUROSEMIDE INJ 40 MG/4 ML VIAL 20 MG IV PUSH (14:12)
[2020-10-08 14:23] LABS: Alanine Aminotransferase 55 U/L (4-35); Albumin Level 2.7 g/dL (3.5-5.1); Alkaline Phosphatase 147 U/L (38-126); Anion Gap 11 mmol/L (8-16); Aspartate Amino Transferase 69 U/L (14-36); Bilirubin,Total 0.4 mg/dL (0.2-1.3); Blood Urea Nitrogen 22 mg/dL (7-17); Calcium 7.6 mg/dL (8.4-10.2); Carbon Dioxide 17 mmol/L (22-30); Chloride 95 mmol/L (98-107); Estimated CRCL calculation 50 ml/min; Estimated Glomerular Filt Rate 35; Glucose 136 mg/dL (65-110); Potassium 4.5 mmol/L (3.4-5.0); Sodium 123 mmol/L (137-145); Uric Acid 9.2 mg/dL (2.5-7.5)
--- NOTE | 2020-10-08 14:23 | PC.NURSE ---
Dr. Sherman notified of chest x-ray results. OK to start incentive spirometer. MD wants to continue to hold IV meds for BP at this time unless SBP is 170 or greater.
--- NOTE | 2020-10-08 14:31 | PC.NURSE ---
Epidural catheter removed with tip intact.
[2020-10-08] MEDS: HYDROcodone/acetaminophen (*CRX) 5-325 MG TABLET 1 TAB PO (14:47)
--- NOTE | 2020-10-08 15:33 | PC.NURSE ---
Dr. Sherman informed pt had 525 ml of urine 1 hr after Lasix. Discussed BP's again and reported lab results including increase in liver enzymes, and increase in BUN and creatinine. OK to give Hydralazine now and follow the protocol orders for BP's >160/100.
[2020-10-08] MEDS: hydrALAZINE HCL 20 MG/ML VIAL 5 MG IV PUSH (15:50)
[2020-10-08] MEDS: SALINE 0.65% NAS SOLN 44 ML BTL 1 SPRAY NASAL (16:04)
--- NOTE | 2020-10-08 16:23 | PC.NURSE ---
Pt set up and assisted with breast pumping.
[2020-10-08] MEDS: hydrALAZINE HCL 20 MG/ML VIAL 10 MG IV PUSH (16:37)
[2020-10-08] MEDS: DEXTROSE 5%/0.45% SOD CHL 1,000 ML 125 ML IV CONT (17:07)
--- NOTE | 2020-10-08 19:15 | OBPPTRN ---
Patient transferred to post room #282 via bed. Support person, Mynor, present. Oriented to unit, room, information board, rooming in, admission packet and security measures. Patient verbalizes understanding.
[2020-10-09] VITALS (15 sets, daily range): BP systolic 133–181; BP diastolic 76–95; PULSE 72–98; RESP 16–20; TEMP 36.2–36.8; O2SAT 96–99
[2020-10-09] MEDS: IBUPROFEN 600 MG TABLET PO ×4 (00:25→22:45)
[2020-10-09] MEDS: MAGNESIUM SULF 20GM/WATER500ML 500 ML 50 MG IV CONT (02:21)
[2020-10-09] MEDS: HYDROcodone/acetaminophen (*CRX) 5-325 MG TABLET 1 TAB PO ×2 (04:29→09:51)
[2020-10-09 05:31] LABS: Basophils Percent Auto 0.1 % (0.2-1.2); Eosinophils Percent Auto 0.1 % (0-4.4); Hematocrit 27.7 % (37.0-47.0); Hemoglobin 9.3 g/dL (12.0-15.0); Immature Granulocyte Absolute 0.13 K/mm3 (0.00-0.031); Immature Granulocyte Percent A 0.8 % (0-0.5); Lymphocytes Percent Auto 7.1 % (18.3-44.2); Mean Corpuscular HGB Conc 33.6 g/dl (32-36); Mean Corpuscular Hemoglobin 29.8 pg (26-34); Mean Corpuscular Volume 88.8 fl (80-100); Mean Platelet Volume 12.3 fl (7.4-10.4); Monocytes Absolute Auto 0.9 K/mm3 (0.1-0.6); Monocytes Percent Auto 5.1 % (2.6-8.5); Neutrophils Absolute Auto 14.7 K/mm3 (1.3-6.7); Neutrophils Percent Auto 86.8 % (45.5-73.1); Platelet Count Result 149 k/mm3 (150-375); Red Blood Count 3.12 M/mm3 (4.2-5.4); Red Cell Distribution Width 13.6 % (11.5-14.5); White Blood Count 16.9 K/mm3 (4.5-10.0)
[2020-10-09 05:42] LABS: Alanine Aminotransferase 48 U/L (4-35); Albumin Level 2.5 g/dL (3.5-5.1); Alkaline Phosphatase 134 U/L (38-126); Anion Gap 8 mmol/L (8-16); Aspartate Amino Transferase 60 U/L (14-36); Bilirubin,Total 0.3 mg/dL (0.2-1.3); Blood Urea Nitrogen 22 mg/dL (7-17); Calcium 6.8 mg/dL (8.4-10.2); Carbon Dioxide 20 mmol/L (22-30); Chloride 94 mmol/L (98-107); Estimated CRCL calculation 70 ml/min; Estimated Glomerular Filt Rate 52; Glucose 141 mg/dL (65-110); Potassium 4.1 mmol/L (3.4-5.0); Sodium 122 mmol/L (137-145); Uric Acid 9.7 mg/dL (2.5-7.5)
--- NOTE | 2020-10-09 07:49 | PM.OBPNVD ---
OB - PN: Subj Subjective Date/time seen: 10/09/20 07:49 Interval history: Patient doing well this AM. Pt does not like the feeling on magnesium. She denies any SOB. She has not yet ambulated out of bed. She is tolerating PO. She reports adequate pain control. Her bleeding is normal and she reports normal lochia. She denies fever, chills, N/V. She has not yet passed flatus. Patient comments: no complaints and pain well controlled; no flatus present OB - PN: Obj Data Labs CBC & Chem 7: 10/09/20 04:49 10/09/20 04:49 Labs: Laboratory Results - last 24 hr 10/08/20 10/08/20 10/09/20 13:51 13:51 04:49 WBC 19.3 H 16.9 H RBC 3.49 L 3.12 L Hgb 10.5 L 9.3 L Hct 31.3 L 27.7 L MCV 89.7 88.8 MCH 30.1 29.8 MCHC 33.5 33.6 RDW 13.3 13.6 Plt Count 156 149 L MPV 12.1 H 12.3 H Immature Gran % (Auto) 0.7 H 0.8 H Neut % (Auto) 87.7 H 86.8 H Lymph % (Auto) 6.7 L 7.1 L [place] % (Auto) 4.7 5.1 Eos % (Auto) 0.0 0.1 Baso % (Auto) 0.2 0.1 L Lymph # (Auto) 1.30 1.20 [place] # (Auto) 0.9 H 0.9 H Eos # (Auto) 0.0 0.0 Baso # (Auto) 0.0 0.0 Abs Immat Gran (auto) 0.14 H 0.13 H Absolute Neuts (auto) 16.9 H 14.7 H Absolute Nucleated RBC 0.0 0.0 Nucleated RBC % 0.0 0.0 Sodium 123 L Potassium 4.5 Chloride 95 L Carbon Dioxide 17 L Anion Gap 11 BUN 22 H D Creatinine 1.70 H Estim Creat Clear Calc 50 Estimated GFR 35 L Glucose 136 H Uric Acid 9.2 H Calcium 7.6 L Total Bilirubin 0.4 AST 69 H ALT 55 H Alkaline Phosphatase 147 H Total Protein 5.0 L Albumin 2.7 L 10/09/20 04:49 WBC RBC Hgb Hct MCV MCH MCHC RDW Plt Count MPV Immature Gran % (Auto) Neut % (Auto) Lymph % (Auto) [place] % (Auto) Eos % (Auto) Baso % (Auto) Lymph # (Auto) [place] # (Auto) Eos # (Auto) Baso # (Auto) Abs Immat Gran (auto) Absolute Neuts (auto) Absolute Nucleated RBC Nucleated RBC % Sodium 122 L Potassium 4.1 Chloride 94 L Carbon Dioxide 20 L Anion Gap 8 BUN 22 H Creatinine 1.20 H Estim Creat Clear Calc 70 Estimated GFR 52 L Glucose 141 H Uric Acid 9.7 H Calcium 6.8 L Total Bilirubin 0.3 AST 60 H ALT 48 H Alkaline Phosphatase 134 H Total Protein 5.0 L Albumin 2.5 L Imaging Radiologist's impression: Impressions Chest X-Ray 10/08/20 13:36 IMPRESSION: 1. Minimal opacities of the mid and lower lung zones, likely atelectasis. OB - PN A/P Plan day: 1 Plan: routine care Comments: patient doing well this AM pt diuresing well will plan to D/C banegas after magnesium plan to d/c magnesium sulfate 24 hrs after delivery SpO2% >96 overnight AST/ALT trending downward BP nl to mild range overnight will continue labetalol 200 mg PO BID, will add procardia if needed Cr trending downward will repeat PIH labs tomorrow H/H , will start iron supplementation continue to monitor BP continue routine PP care plan for infant circumcision today. risks, benefits, alternative discussed. consent obtained Time Spent With Patient Time: Total time spent is greater than 50% in coordination of care (as documented) at patient's floor/unit and/or counseling patient: Time with patient: less than 15 minutes Review of Systems Constitutional: Constitutional: Reports no additional constitutional complaints Cardiovascular: Cardiovascular: Reports no additional cardiovascular complaints Respiratory: Respiratory: Reports no additional respiratory complaints Gastrointestinal: Gastrointestinal: Reports no additional gastrointestinal complaints Genitourinary: Genitourinary: Reports no additional female genitourinary complaints Exam Const: General: comfortable and no acute distress Resp: Effort & Inspection: normal respiratory effort Auscultation: clear to auscultation bilaterally Cardio: Rate: regular rate GI: GI Palp: Yes Sof
--- NOTE | 2020-10-09 08:00 | PC.NURSE ---
Pt introductions made and plan of care discussed per protocol c section, post magnesium sulfate, PIH, daily care activities, breast feeding, and pain management, PT received such instructions per one to one discussion, mom baby care guide, and demonstration. PT and fob recipients of such instructions and no barriers to learning identified. PT verbalized understanding of such care.
[2020-10-09] MEDS: POLYSACCHARIDE IRON COMPLEX 150 MG CAPSULE PO ×2 (09:52→16:49)
[2020-10-09] MEDS: MULTIVIT/MIN/PREN/FOL AC/IRON TABLET 1 TAB PO (09:52)
[2020-10-09] MEDS: SIMETHICONE 80 MG TAB.CHEW PO ×3 (09:52→16:48)
[2020-10-09] MEDS: DOCUSATE SODIUM 100 MG CAPSULE PO ×2 (09:53→16:48)
[2020-10-09] MEDS: LABETALOL HCL 100 MG TABLET 200 MG PO ×2 (09:54→21:00)
--- NOTE | 2020-10-09 11:00 | PCDIET ---
Consult with pt., mother reports she has attempted infant to breast most feedings, she will then bottle feed. Mother has been using a nipple shield for inverted nipples. Mother has pumped once since due to effects from Magnesium. Discussed the infant and possible challenges of establishing . Infants born early often have less stamina and may be sleepy and difficult to wake for feedings , have more difficulties with latch and suck and swallow. The increased risk for weight loss, slow weight gain, dehydration, low blood sugar, low body temperature and jaundice. Potential problems for mother of early infants are establishing a good milk supply due to lack of adequate stimulation of supply. Discussed the importance of initiating regular pumping after all attempts to stimulate milk supply and offer any EBM. Discussed nipple shield precautions and possible complications. Reviewed application and cleaning of shield. Patient able to return demonstration on proper application of shield. Discussed the need to initiate regular pumping if continues to nurse with the shield. Patient verbalizes understanding. Reviewed feeding cues, frequencies, duration of feedings, feeding elimination flow sheet, and signs of adequate intake. Demonstrated stimulation techniques to wake for feeding. Assisted with infant to breast. Reviewed positioning/alignment in cross cradle, holding breast in U hold and guided asymmetrical latch on. was able to latch correctly on to nipple shield. Infant nursed weakly for short bursts followed with long pausing. Suggested stimulation to keep awake and nursing. Reviewed signs of a correct latch, effective nursing and suck swallow ratio. was able to maintain latch without discomfort to mother, with only short bursts of weak suckling. Reviewed the difference and effective and ineffective suckling, advised is not nursing effectively and transferring milk at this time and will need to continue with supplementation. Mother voices concerns will not want to return to breast with formula feeding. Reviewed infant is currently nursing with a nipple shield which is an artificial nipple the same as a bottle nipple and is not feeding adequately transferring milk.
--- NOTE | 2020-10-09 11:30 | PC.NURSE ---
Reviewed breast pump care and usage, pumping schedule, nipple care, and collection and storage of breast milk. Encouraged [id number], breast massage and manual expression to stimulate supply. Pumping log provided and reviewed. Assessed patient for correct flange size, placement and draw. Patient verbalizes and demonstrates understanding of instructions.
[2020-10-09] MEDS: ACETAMINOPHEN 325 MG TABLET 650 MG PO ×2 (12:46→19:00)
--- NOTE | 2020-10-09 16:14 | WPDANLDPN2 ---
Anes-Prog Note L&D Date/Time: 10/09/20 16:14 Comfortable throughout: section Neuraxial method: spinal Epidural/Spinal procedure site: clean & non-tender Neuro status: Neuro function grossly intact. Cardiovascular status: normal Respiratory status: normal Airway patency: baseline Mental status: baseline Post-Op hydration status: normal Vital Signs: Last Vital Signs Temp 36.3 C L 10/09/20 12:35 Pulse 80 10/09/20 12:35 Resp 18 10/09/20 12:35 BP 159/95 H 10/09/20 12:35 Pulse Ox 99 10/09/20 12:35 Pain score (VAS): 2 I/O: Intake & Output 10/09/20 10/09/20 10/09/20 07:59 15:59 23:59 Intake Total 750 Output Total 675 Balance 75 Post-procedural complaints: none Patient feedback: Patient satisfied with anesthetic care.
--- NOTE | 2020-10-09 16:14 | WPDANLDNPN2 ---
Anes-Prog Note L&D-Neuraxial Date/Time: 10/09/20 16:14 Neuraxial medications: intrathecal PF morphine Opiod-related complaints: none Patient feedback: Patient satisfied with post-operative pain management.
[2020-10-09] MEDS: NIFEdipine 30 MG TAB.ER.24 PO (18:29)
[2020-10-10] VITALS (16 sets, daily range): BP systolic 150–191; BP diastolic 81–101; PULSE 89–108; RESP 16; TEMP 36.4–36.8; O2SAT 96–99
[2020-10-10] MEDS: ACETAMINOPHEN 325 MG TABLET 650 MG PO ×4 (01:10→19:45)
[2020-10-10] MEDS: IBUPROFEN 600 MG TABLET PO ×4 (04:55→23:06)
--- NOTE | 2020-10-10 08:39 | P.PNOB_ITS ---
OB - PN: Subj Subjective Date/time seen: 10/10/20 08:39 Interval history: Patient doing well this AM. She again had elevated BP last night despite medication. Pt denies any SOB, CP, vision changes, RUQ pain. Pt states she feels better than she has. Her only complaint is that her swelling has returned in her hands and feet which is painful. She reports minimal bl eeding and normal lochia. She is ambulating and voiding spontaneously. OB - PN: Obj Data Labs CBC & Chem 7: 10/09/20 04:49 10/09/20 04:49 OB - PN A/P Plan day: 2 Plan: routine care Comments: PB elevated again overnight continue labetalol 200 mg PO BID and Procardia XL 30mg daily will give another dose of lasix this morning pt has been diuresing well SpO2% 98, nl RR, pt asymptomatic will repeat CMP, CBC, Uric acid this AM if we cannot improve BP control this AM, will consider hospitalist consultation Time Spent With Patient Time: Total time spent is greater than 50% in coordination of care (as documented) at patient's floor/unit and/or counseling patient: Time with patient: 15 - 25 minutes
[2020-10-10] MEDS: DOCUSATE SODIUM 100 MG CAPSULE PO ×2 (08:40→17:05)
[2020-10-10] MEDS: MULTIVIT/MIN/PREN/FOL AC/IRON TABLET 1 TAB PO (08:40)
[2020-10-10] MEDS: POLYSACCHARIDE IRON COMPLEX 150 MG CAPSULE PO ×2 (08:41→17:05)
[2020-10-10] MEDS: LABETALOL HCL 100 MG TABLET 200 MG PO ×2 (08:41→21:00)
[2020-10-10] MEDS: NIFEdipine 30 MG TAB.ER.24 PO ×2 (08:42→21:00)
[2020-10-10] MEDS: FUROSEMIDE INJ 40 MG/4 ML VIAL 20 MG IV PUSH ×2 (09:40→16:23)
[2020-10-10 10:15] LABS: Hemoglobin 8.3 g/dL (12.0-15.0); Mean Corpuscular HGB Conc 33.2 g/dl (32-36); Mean Corpuscular Hemoglobin 29.6 pg (26-34); Mean Corpuscular Volume 89.3 fl (80-100); Mean Platelet Volume 11.6 fl (7.4-10.4); Platelet Count Result 148 k/mm3 (150-375); Red Cell Distribution Width 13.7 % (11.5-14.5); White Blood Count 11.9 K/mm3 (4.5-10.0)
[2020-10-10 10:27] LABS: Alanine Aminotransferase 34 U/L (4-35); Albumin Level 2.2 g/dL (3.5-5.1); Alkaline Phosphatase 102 U/L (38-126); Anion Gap 7 mmol/L (8-16); Aspartate Amino Transferase 52 U/L (14-36); Bilirubin,Total 0.2 mg/dL (0.2-1.3); Blood Urea Nitrogen 17 mg/dL (7-17); Calcium 7.7 mg/dL (8.4-10.2); Carbon Dioxide 21 mmol/L (22-30); Chloride 103 mmol/L (98-107); Estimated CRCL calculation 92 ml/min; Estimated Glomerular Filt Rate > 60; Glucose 133 mg/dL (65-110); Potassium 3.5 mmol/L (3.4-5.0); Sodium 131 mmol/L (137-145); Uric Acid 8.5 mg/dL (2.5-7.5)
[2020-10-10] MEDS: hydrALAZINE 10 MG TABLET PO (12:36)
[2020-10-10] MEDS: hydrALAZINE HCL 20 MG/ML VIAL 5 MG IV PUSH (18:35)
[2020-10-11] VITALS (16 sets, daily range): BP systolic 141–181; BP diastolic 86–105; PULSE 88–110; RESP 16–20; TEMP 36.8–37; O2SAT 95–100
[2020-10-11] MEDS: ACETAMINOPHEN 325 MG TABLET 650 MG PO ×3 (02:00→23:34)
[2020-10-11] MEDS: DOCUSATE SODIUM 100 MG CAPSULE PO ×2 (07:20→16:17)
[2020-10-11] MEDS: MULTIVIT/MIN/PREN/FOL AC/IRON TABLET 1 TAB PO (07:20)
[2020-10-11] MEDS: POLYSACCHARIDE IRON COMPLEX 150 MG CAPSULE PO ×2 (07:20→16:17)
[2020-10-11] MEDS: TETANUS,DIPHTHERIA,AC PERTUSSIS ADULT (0.5 ML) BOOSTRIX IM (07:22)
[2020-10-11] MEDS: IBUPROFEN 600 MG TABLET PO ×3 (07:23→19:42)
[2020-10-11] MEDS: NIFEdipine 30 MG TAB.ER.24 PO ×2 (07:27→21:06)
[2020-10-11] MEDS: LABETALOL HCL 100 MG TABLET 200 MG PO ×2 (07:27→09:20)
--- NOTE | 2020-10-11 08:53 | P.PNOB_ITS ---
OB - PN: Subj Subjective Date/time seen: 10/11/20 08:53 Interval history: Patient doing well this AM. slightly improved BP overnight. Pt clinically feels well and is requesting discharge. Pt denies any SOB, CP, vision changes, RUQ pain. She reports minimal bleeding and normal lochia. She is ambulating and voiding spontaneously. OB - PN: Obj Data Labs CBC & Chem 7: 10/10/20 10:08 10/10/20 10:08 Labs: Laboratory Results - last 24 hr 10/10/20 10/10/20 10:08 10:08 WBC 11.9 H RBC 2.80 L Hgb 8.3 L Hct 25.0 L MCV 89.3 MCH 29.6 MCHC 33.2 RDW 13.7 Plt Count 148 L MPV 11.6 H Sodium 131 L Potassium 3.5 Chloride 103 Carbon Dioxide 21 L Anion Gap 7 L BUN 17 Creatinine 0.90 Estim Creat Clear Calc 92 Estimated GFR > 60 Glucose 133 H Uric Acid 8.5 H Calcium 7.7 L Total Bilirubin 0.2 AST 52 H ALT 34 Alkaline Phosphatase 102 Total Protein 5.0 L Albumin 2.2 L OB - PN A/P Plan day: 3 Plan: routine care Comments: BP mildly improved overnight will increase labetalol to 400 mg BID, continue procardia 30mg XL BID will give 1 additional dose of Lasix this AM Pt denies any postaprtum complaints this AM If BP remain mild range with increased labetalol dose, would consider d/c home later today with close follow up Time Spent With Patient Time: Total time spent is greater than 50% in coordination of care (as d ocumented) at patient's floor/unit and/or counseling patient: Time with patient: 15 - 25 minutes
[2020-10-11] MEDS: FUROSEMIDE 20 MG TABLET PO (10:43)
--- NOTE | 2020-10-11 14:00 | WPDCN ---
Assessment and Plan Assessment and plan (1) hypertension: Code(s): O16.5 - Unspecified maternal hypertension, complicating the puerperium Status: Acute Assessment and Plan: Continue labetalol and Procardia XL b.i.d. for now. I think her blood pressures will improve markedly if we can get some of this fluid off of her. At this time I am going to start her on IV Lasix q.12 hours. I recommend monitoring blood pressure every 4 hours as I assume they will start to drop with diuresis. Depending on her blood pressures tomorrow morning and how much urine she has put out, we may be able to decrease her labetalol does or decrease the Procardia back to once a day. She would probably benefit from another day of p.o. Lasix if she goes home tomorrow. Check potassium and magnesium in a.m. as she may very well need supplementation. If she is able to go home tomorrow I would suggest following up in the office in a day or 2 to recheck her electrolytes. (2) Severe preeclampsia: Onset Date: 09/2020 Code(s): O14.10 - Severe pre-eclampsia, unspecified trimester Status: Acute Assessment and Plan: On magnesium 24 hours post . Labs have markedly improved and are nearing normal. Blood pressures continued to be elevated as above. (3) Gestational diabetes: Code(s): O24.419 - Gestational diabetes mellitus in , unspecified control Status: Acute Assessment and Plan: Glucose has been reasonable. Management per primary service. (4) Anemia: Code(s): D64.9 - Anemia, unspecified Status: Acute Assessment and Plan: anemia, stable and improving. Additional Plan Thank you for allowing us to participate in this patient's care. Please do not hesitate to contact us with any questions. Supervising physician for this medical consultation is Dr. Talita Simon. HPI Data of Consult Date/Time: 10/11/20 15:00 Requesting Physician: Francisco Sherman MD Primary Care Provider: Socorro Rojas MD Consult Narrative Narrative: This is a very pleasant 34-year-old female day 3 whom the hospitalist service has been consulted to help with management of difficult to control hypertension. She was admitted to the hospital for induction on 10/06/2020 after being seen in the office that day with significantly elevated blood pressure. 2 weeks prior to that she was started on labetalol 200 mg twice daily and despite that her blood pressures remained poorly controlled. She began to retain fluid and reports at least a 20 lb weight gain in the last several weeks. After approximately 37 hours the decision was made to deliver via section. She was on a magnesium drip for 24 hours post delivery and her labs have continued to improve although her blood pressures remain high despite the addition of Procardia XL 30 mg daily to the above-mentioned dose of labetalol. Due to her significant swelling she received 2 doses of IV furosemide, 20 mg each, on 10/10/2020. She had great urine output with that but unfortunately continued to have high readings. I spoke with Dr. Sherman last evening and suggested increasing her labetalol to 400 mg b.i.d.. He also decided to increase her Procardia XL to twice daily. Despite these changes her blood pressures have still been running in the 150s to 170s. I came to evaluate the patient today and she is sitting at the side of the bed and is feeling quite good. She is still edematous but feels the swelling has gone down immensely though it is still uncomfortable. She has no symptoms of hypertension and specifically denies headache, vision changes, chest pain, and shortness of breath. No orthopnea or PND. She denies palpitations and feelings of racing heart. She has not had any nausea or vomiting. She has never been treated for hypertension before though it is noted on an in office note from Dr. Quintanilla that her blood pressures had been running h
[2020-10-11 16:02] LABS: Hematocrit 26.5 % (37.0-47.0); Hemoglobin 8.7 g/dL (12.0-15.0); Mean Corpuscular HGB Conc 32.8 g/dl (32-36); Mean Corpuscular Hemoglobin 29.7 pg (26-34); Mean Corpuscular Volume 90.4 fl (80-100); Platelet Count Result 204 k/mm3 (150-375); Red Blood Count 2.93 M/mm3 (4.2-5.4); Red Cell Distribution Width 13.7 % (11.5-14.5); White Blood Count 12.6 K/mm3 (4.5-10.0)
[2020-10-11 16:16] LABS: Alanine Aminotransferase 44 U/L (4-35); Albumin Level 2.7 g/dL (3.5-5.1); Alkaline Phosphatase 111 U/L (38-126); Anion Gap 4 mmol/L (8-16); Aspartate Amino Transferase 69 U/L (14-36); Bilirubin,Total 0.3 mg/dL (0.2-1.3); Blood Urea Nitrogen 11 mg/dL (7-17); Calcium 8.6 mg/dL (8.4-10.2); Carbon Dioxide 26 mmol/L (22-30); Chloride 106 mmol/L (98-107); Estimated CRCL calculation 99 ml/min; Estimated Glomerular Filt Rate > 60; Glucose 94 mg/dL (65-110); Magnesium 1.7 mg/dL (1.6-2.3); Potassium 4.1 mmol/L (3.4-5.0); Sodium 136 mmol/L (137-145)
[2020-10-11 16:23] LABS: NT Pro B Type Natriuretic Pept 410 pg/mL (5-100)
[2020-10-11 16:41] LABS: Add Urine Microscopic? YES; Appearance Urine Clear (Clear); Bacteria Urine Trace /hpf; Bilirubin Urine Negative (Negative); Blood Urine 2+ (Negative); Color Urine Yellow (Yellow); Glucose Urine UA Negative (Negative); Ketones Urine Negative (Negative); Leukocyte Esterase Ur 2+ LEU/UL (NEGATIVE); Mucus Urine Rare /lpf; Nitrate Urine Negative (Negative); Protein Urine 1+ mg/dL (Negative); RBC Urine 51-75 /hpf (0-2); Specific Grav Ur 1.015 (1.001-1.035); Squamous Epithelial Cell Urine Occasional /hpf (Few); Urobilinogen Urine Negative mg/dL (<2.0); WBC Urine 21-30 /hpf (0-3)
[2020-10-11 16:48] LABS: Total Protein Urine Random 30 mg/dL
[2020-10-11] MEDS: FUROSEMIDE INJ 40 MG/4 ML VIAL IV PUSH (19:18)
[2020-10-11 20:16] LABS: Free T4 Free Thyroxine Reflex 1.03 ng/dL (0.78-2.19)
[2020-10-11] MEDS: LABETALOL HCL 100 MG TABLET 400 MG PO (21:06)
--- NOTE | 2020-10-12 | ECHO_ITS ---
Patient Info Name: Carine Gruber Age: 34 years : 1985 Gender: Female Ht: 61 in Wt: 239 lbs BSA: 2.23 m2 HR: 97 bpm BP: 151 / 79 mmHg Exam Date: 10/12/2020 2:38 PM Exam Location: [facility] Patient Status: Inpatient Admit Date: 10/06/2020 Staff Ordering Physician: Keila Delcid PA-C Load Dispatcher Local: Sagar Navarrete, NIMESH, RT Attending Provider: Francisco Sherman MD Referring Physician: Bhavin BLANCO; Exam Type: CA echo doppler color flow Study Info Indications R60.0 - Localized edema Complete two-dimensional, color flow and Doppler transthoracic echocardiogram is performed. Strain analysis performed. Summary 1. Complete two-dimensional, color flow and Doppler transthoracic echocardiogram is performed. 2. Left ventricular chamber dimension is normal. 3. Left ventricular systolic function is normal, estimated at 65-70%. 4. The left ventricular diastolic function is normal. 5. E/e' 10 is mildly elevated. 6. Global longitudinal strain is normal at -17.4%. 7. There is mild to moderate mitral valve regurgitation. 8. There is mild to moderate tricuspid valve regurgitation. 9. Moderate pulmonary hypertension, estimated pulmonary arterial systolic pressure is 57 mmHg. 10. Dilated inferior vena cava with >50% collapse upon inspiration consistent with elevated right atrial pressure, 10 mmHg. Left Ventricle E/e' 10 is mildly elevated. Global longitudinal strain is normal at -17.4%. Left ventricular chamber dimension is normal. Left ventricular systolic function is normal, estimated at 65-70%. The left ventricular diastolic function is normal. Right Ventricle Right ventricular chamber dimension is normal. Right ventricular systolic function is normal. Left Atria Left atrial chamber dimension is normal. Right Atria Right atrial chamber dimension is normal. Aortic Valve The aortic valve is trileaflet. There is no aortic valve stenosis. There is no aortic valve regurgitation. Pulmonic Valve There is no pulmonic regurgitation. Mitral Valve There is no mitral valve stenosis. There is mild to moderate mitral valve regurgitation. Tricuspid Valve There is mild to moderate tricuspid valve regurgitation. Moderate pulmonary hypertension, estimated pulmonary arterial systolic pressure is 57 mmHg. Pericardium/Pleural There is no pericardial effusion. Inferior Vena Cava Dilated inferior vena cava with >50% collapse upon inspiration consistent with elevated right atrial pressure, 10 mmHg. Aorta The aortic root size at the sinus of Valsalva is normal. Left Ventricular Outflow Tract Name Value Normal LVOT 2D LVOT Diameter 2.0 cm LVOT Doppler LVOT Peak Gradient 7 mmHg LVOT Mean Gradient 3 mmHg LVOT VTI 22 cm LVOT VTI/AV VTI Ratio 0.7 LVOT Stroke Volume 67 ml LVOT CO 6.7 l/min LVOT CI 3.0 l/min/m2 Mitral Valve
[2020-10-12] MEDS: IBUPROFEN 600 MG TABLET PO ×2 (04:11→18:51)
[2020-10-12 04:15] VITALS: BP 166/102; PULSE 100
[2020-10-12 06:19] LABS: Anion Gap 5 mmol/L (8-16); Blood Urea Nitrogen 11 mg/dL (7-17); Calcium 8.2 mg/dL (8.4-10.2); Carbon Dioxide 26 mmol/L (22-30); Chloride 105 mmol/L (98-107); Estimated CRCL calculation 112 ml/min; Estimated Glomerular Filt Rate > 60; Glucose 91 mg/dL (65-110); Magnesium 1.4 mg/dL (1.6-2.3); Potassium 3.8 mmol/L (3.4-5.0); Sodium 136 mmol/L (137-145)
--- NOTE | 2020-10-12 07:18 | PM.OBPNVD ---
OB - PN: Subj Subjective Date/time seen: 10/12/20 07:18 Interval history: Patient doing well this AM. Pt was able to get some sleep last night. She is happy her 's bilirubin has improved and is doing well. Pt clinically feels well. Pt denies any SOB, CP, vision changes, RUQ pain. She reports minimal bleeding and normal lochia. She is ambulating and voiding spontaneously. OB - PN: Obj Data Labs CBC & Chem 7: 10/11/20 15:57 10/12/20 05:45 Labs: Laboratory Results - last 24 hr 10/11/20 10/11/20 10/11/20 15:57 15:57 15:57 WBC 12.6 H RBC 2.93 L Hgb 8.7 L Hct 26.5 L MCV 90.4 MCH 29.7 MCHC 32.8 RDW 13.7 Plt Count 204 MPV 11.0 H Sodium 136 L Potassium 4.1 Chloride 106 Carbon Dioxide 26 Anion Gap 4 L BUN 11 D Creatinine 0.80 Estim Creat Clear Calc 99 Estimated GFR > 60 Glucose 94 Calcium 8.6 Magnesium 1.7 Total Bilirubin 0.3 AST 69 H ALT 44 H Alkaline Phosphatase 111 NT-Pro-B Natriuret Pep Total Protein 5.0 L Albumin 2.7 L TSH (Reflex) 4.790 H Free T4 Urine Color Urine Appearance Urine pH Ur Specific [place] Urine Protein Urine Glucose (UA) Urine Ketones Ur Blood (Man) Urine Nitrate Urine Bilirubin Urine Urobilinogen Ur Leukocyte Esterase Urine RBC Urine WBC Ur Squamous Epith Cells Urine Bacteria Urine Mucus U Random Total Protein 10/11/20 10/11/20 10/11/20 15:57 15:57 16:22 WBC RBC Hgb Hct MCV MCH MCHC RDW Plt Count MPV Sodium Potassium Chloride Carbon Dioxide Anion Gap BUN Creatinine Estim Creat Clear Calc Estimated GFR Glucose Calcium Magnesium Total Bilirubin AST ALT Alkaline Phosphatase NT-Pro-B Natriuret Pep 410 H Total Protein Albumin TSH (Reflex) Free T4 1.03 Urine Color Yellow Urine Appearance Clear Urine pH 7.0 Ur Specific [place] 1.015 Urine Protein 1+ H Urine Glucose (UA) Negative Urine Ketones Negative Ur Blood (Man) 2+ H Urine Nitrate Negative Urine Bilirubin Negative Urine Urobilinogen Negative Ur Leukocyte Esterase 2+ H Urine RBC 51-75 H Urine WBC 21-30 H Ur Squamous Epith Cells Occasional Urine Bacteria Trace Urine Mucus Rare U Random Total Protein 10/11/20 10/12/20 16:22 05:45 WBC RBC Hgb Hct MCV MCH MCHC RDW Plt Count MPV Sodium 136 L Potassium 3.8 Chloride 105 Carbon Dioxide 26 Anion Gap 5 L BUN 11 Creatinine 0.70 Estim Creat Clear Calc 112 Estimated GFR > 60 Glucose 91 Calcium 8.2 L Magnesium 1.4 L Total Bilirubin AST ALT Alkaline Phosphatase NT-Pro-B Natriuret Pep Total Protein Albumin TSH (Reflex) Free T4 Urine Color Urine Appearance Urine pH Ur Specific [place] Urine Protein Urine Glucose (UA) Urine Ketones Ur Blood (Man) Urine Nitrate Urine Bilirubin Urine Urobilinogen Ur Leukocyte Esterase Urine RBC Urine WBC Ur Squamous Epith Cells Urine Bacteria Urine Mucus U Random Total Protein 30 OB - PN A/P Plan day: 4 Comments: Appreciate hospitalist recommendations started on lasix BID continues to diurese well BP remain labile will continue labetalol BID and Procardia BID will continue to monitor BP today will coordinate dispo with hospitalist Time Spent With Patient Time: Total time spent is greater than 50% in coordination of care (as documented) at patient's floor/unit and/or counseling patient: Time with patient: 15 - 25 minutes
[2020-10-12 07:55] VITALS: BP 151/79; PULSE 97; RESP 16; TEMP 36.8; O2SAT 97
--- NOTE | 2020-10-12 08:00 | PC.NURSE ---
Consult with pt., mother reports she has pumped regularly and has had not milk production. Assured mother this is normal and with increased QBL milk may transition may be delayed a few days. Mother reports both breasts feel full and heavy today. Mother's plan is to pump and bottle feed. Discussed [id number], breast massage and manual expression a few minutes to stimulate supply before pumping. Reviewed breast pump care and usage, pumping schedule, nipple care, and collection and storage of breast milk. Mother is feeding as required and waking infant to feed if needed. Infant is currently meeting outcomes for weight, output, jaundice and feeding frequencies. Mother states she feels confident to continue pumping and bottle feeding EBM/formula at home. Reviewed transition to breast milk, signs of adequate intake, and engorgement/relief. Instructed to call ICP if intake/output less than required. Reviewed regular medications mother is taking. Information provided per Samantha. Reviewed community resources on the [facility] website and in the Mom/Baby guide. Information on outpatient services provided. Mother has no further questions at this time.
[2020-10-12] MEDS: MULTIVIT/MIN/PREN/FOL AC/IRON TABLET 1 TAB PO (08:22)
[2020-10-12] MEDS: POLYSACCHARIDE IRON COMPLEX 150 MG CAPSULE PO ×2 (08:23→16:49)
[2020-10-12] MEDS: DOCUSATE SODIUM 100 MG CAPSULE PO ×2 (08:23→16:49)
[2020-10-12] MEDS: NIFEdipine 30 MG TAB.ER.24 PO (08:23)
[2020-10-12 08:24] VITALS: PULSE 97
[2020-10-12] MEDS: LABETALOL HCL 100 MG TABLET 400 MG PO (08:24)
[2020-10-12] MEDS: FUROSEMIDE INJ 40 MG/4 ML VIAL IV PUSH ×2 (09:00→16:50)
[2020-10-12] MEDS: MAGNESIUM SULF 2 GM/WATER 50ML 2 GM/50 ML BAG IVPB (09:22)
[2020-10-12 11:58] VITALS: BP 151/98; PULSE 92; RESP 16; TEMP 37.1; O2SAT 98
[2020-10-12 16:00] VITALS: BP 159/102
--- NOTE | 2020-10-12 16:29 | PM.IMPN ---
Progress Note: A&P Assessment and Plan (1) hypertension: Code(s): O16.5 - Unspecified maternal hypertension, complicating the puerperium Status: Acute Assessment and Plan: Continue labetalol and Procardia XL - continue Lasix, the patient is diuresing very well and her swelling has improved - blood pressure remains a bit high but has overall improved - BNP elevated with slight murmur. Echo ordered - electrolytes stable - dispo per OBGYN (2) Severe preeclampsia: Onset Date: 09/2020 Code(s): O14.10 - Severe pre-eclampsia, unspecified trimester Status: Acute Assessment and Plan: On magnesium 24 hours post . - blood pressure remains high as noted above - 2g of Mag was given this morning since her magnesium was 1.4 (3) Gestational diabetes: Code(s): O24.419 - Gestational diabetes mellitus in , unspecified control Status: Acute Assessment and Plan: last glucose 91 - Management per primary service (4) Anemia: Code(s): D64.9 - Anemia, unspecified Status: Acute Assessment and Plan: anemia, stable and improving. Additional Plan Thank you for allowing us to participate in this patient's care. Please do not hesitate to contact us with any questions. Time Spent With Patient Time with patient: 25 - 35 minutes Subjective Date/time seen: 10/12/20 16:29 Interval history: Pt is a 34-year-old female being consulted for hypertension. Patient was seen today and states she feels good. She said her swelling is significantly less and is feeling much better. she has been diuresing and urinating very well. Pt denies nausea, vomiting, fevers, chills,chest pain, sob, or abdominal pain. No history of heart disease Review of Systems Review of Systems: All systems reviewed & are unremarkable except as noted in HPI and below Exam Narrative: Exam Narrative: General: Well developed well nourished patient in NAD HEENT: normocephalic Neck: supple Neuro: Alert and oriented x4 CV:RRR with a slight murmur to the right intercostal space Resp:CTA Abd: Soft, non distended. mildly tender to palpation. Positive bowel sounds. Extremities: 2+ pitting edema to her feet and 1+ pitting edema up to the mid ramsey. No erythema or pain to palpation Objective Data Vital Signs Vital Signs: Vital Signs - 24 hr 10/11/20 17:50 10/11/20 19:15 10/11/20 21:06 Temperature 98.5 F Pulse Rate 101 H 110 H 106 H Respiratory Rate 16 Blood Pressure 173/96 H 159/97 H Pulse Oximetry 99 98 10/11/20 23:15 10/12/20 04:15 10/12/20 07:55 Temperature 98.2 F Pulse Rate 102 H 100 97 Respiratory Rate 16 Blood Pressure 141/89 H 166/102 H 151/79 H Pulse Oximetry 97 10/12/20 08:24 10/12/20 11:58 10/12/20 16:00 Temperature 98.7 F Pulse Rate 97 92 Respiratory Rate 16 Blood Pressure 151/98 H 159/102 H Pulse Oximetry 98 Intake/Output Intake/Output: Intake & Output 10/09/20 10/10/20 10/11/20 10/12/20 23:59 23:59 23:59 23:59 Intake Total 2350 4980 3250 1640 Output Total 3550 9652 5800 [address] [place] [id number] -[id number] [id number] -3760 Meds/Results Medications: Active Medications Generic Name Dose Route Start Last Admin Trade Name Freq PRN Reason Stop Dose Admin Acetaminophen 650 mg 10/08/20 11:25 10/11/20 23:34 Acetaminophen 325 Mg Tablet PO 650 mg Q6H PRN Administration Mild Pain (1-3) Hydrocodone Bitart/Acetaminophen 1 tab 10/08/20 11:25 10/09/20 09:51 Hydrocodone/Acetaminophen (*Crx) 5-325 Mg Tablet PO 1 tab Q3H PRN Administration Moderate Pain (4-6) Hydrocodone Bitart/Acetaminophen 1 tab 10/08/20 11:25 Hydrocodone/Acetaminophen (*Crx) 10-325 Mg Tablet PO Q3H PRN Pain Rated 7-10 Bisacodyl 10 mg 10/08/20 11:25 Bisacodyl 10 Mg Suppository RECTAL ONCE PRN Constipation Docusate Sodium 100 mg 10/08/20 11:25
--- NOTE | 2020-10-12 18:14 | PM.OBDSVD ---
DS: Admitting Diagnosis Admitting Diagnosis severe preeclampsia OB - DS: Summary OB Procedures : None OB Procedures Intrapartum: OB Procedures: : None Peripartum Data Delivery Method: Section Procedures: Procedures Operation Date: 10/08/20 07:30 Actual Procedure Side Surgeon p Section Not Applicable Francisco Sherman MD complications: other (severe preeclampsia) Status at Discharge Functional status at discharge: independent ambulation Overall status at discharge: patient is progressing back to baseline Time Spent with Patient Time attestation: Total time spent providing and/or coordinating discharge services: Time spent: Less than 30 minutes Exam Const: General: comfortable and no acute distress Resp: Effort & Inspection: normal respiratory effort Auscultation: clear to auscultation bilaterally Cardio: Rate: regular rate GI: Inspection: non-distended GI Palp: Yes Soft to palpation, No Firmness to palpation present (GI), Yes Tenderness to palpation present (GI) (mild tenderness over incision ) and No Guarding due to palpation present (GI) Auscultation: normal bowel sounds Psych: Appearance: grossly normal Mental Status: mental status grossly normal DS: Data Data Completed and Pending Pending studies at discharge: Pending at discharge 10/08/20 07:46 Surgical [PTH] Routine Labs on day of discharge: Labs from last 24 hours 10/12/20 10/11/20 10/11/20 05:45 15:57 15:57 Sodium 136 L Potassium 3.8 Chloride 105 Carbon Dioxide 26 Anion Gap 5 L BUN 11 Creatinine 0.70 Estim Creat Clear Calc 112 Estimated GFR > 60 Glucose 91 Calcium 8.2 L Magnesium 1.4 L Free T4 1.03 Total T3 1.60 Discharge Plan Discharge Consulting providers: Keila Delcid ; Cece Dhillon Discharging Clinician: Francisco Sherman Patient Disposition: Home, Self-Care Activity: as tolerated and pelvic rest Diet: regular Discharge Instructions: call or return for temperature >100.4, bleeding >2 pads/hr for 2 hrs, pain not controlled with medications, signs/symptoms of mastitis Patient Instructions: Antibiotic Form, Preeclampsia and Eclampsia After Delivery (GEN), (DC) Stand Alone Forms: General Discharge Information Follow-up/Referrals: Francisco Sherman MD [Physician] - 1 Week Discharge Medications: New oxycodone-acetaminophen 5-325 mg tablet 1 tablet PO Q6H PRN (Reason: pain) Qty: 28 RF: 0 polysaccharide iron complex 150 mg iron Capsule 150 mg PO BIDWM Qty: 60 RF: 0 labetalol 100 mg Tablet 400 mg PO Q12HR Qty: 60 RF: 2 ibuprofen 600 mg Tablet 600 mg PO Q6H PRN (Reason: Cramping) Qty: 30 RF: 0 nifedipine [Procardia XL] 30 mg Tablet Extended Release 24hr 30 mg PO Q12HR Qty: 60 RF: 2 furosemide [Lasix] 40 mg tablet 40 mg PO DAILY Qty: 1 RF: 0 Discontinued glyburide 5 mg tablet 5 mg PO DAILY RF: 0 cholecalciferol (vitamin D3) 1,250 mcg (50,000 unit) capsule 50,000 unit PO WEEKLY RF: 0 labetalol 100 mg tablet 200 mg PO Q12H RF: 0 Date of admission: 10/06/20 15:52 Primary Care Provider: Socorro Rojas Admitting Provider: Francisco Sherman Attending physician on admission: Francisco Sherman Condition: Stable
[2020-10-13 08:52] VITALS: BP 170/100; PULSE 86; RESP 20; TEMP 36.6; O2SAT 99
== END 2020-10-12 20:07 | disposition home or self-care (01) | DRG 788 ==
LOC: ANHOBOP 15:58 → ANHOBPP 15:58 → ANHLDR 17:04 → ANHOBPP 10-08 11:16 → ANHOB2 10-08 19:44
PROVIDERS: Physician Assistant; Admitting Provider Student in an Organized Health Care Education/Training Program; PCP Family Medicine; Visit Provider Student in an Organized Health Care Education/Training Program
PROC: 10D00Z1 Extraction of Products of Conception, Low, Open Approach (ICD-10-PCS; CPT 59514; principal; 2020-10-08 07:30)
DX: O14.13 Severe pre-eclampsia, third trimester (principal); O12.03 Gestational edema, third trimester; O99.214 Obesity complicating childbirth; E66.01 Morbid (severe) obesity due to excess calories; O62.1 Secondary uterine inertia; O99.013 Anemia complicating pregnancy, third trimester; D64.9 Anemia, unspecified; O16.5 Unspecified maternal hypertension, complicating the puerperium; O24.425 Gestational diabetes mellitus in childbirth, controlled by oral hypoglycemic drugs; Z3A.35 35 weeks gestation of pregnancy; Z37.0 Single live birth
CPT/HCPCS: 36415; 71045; 80048; 80053; 81001; 81050; 82570; 82948; 83735; 83880; 84156; 84439; 84443; 84480; 84550; 85025; 85027; 86592; 86850; 86900; 86901; 87086; 87088; 88307; 90715; 93306; 96372; A9270; J0131; J0290; J0360; J0690; J0702; J1885; J1940; J2274; J2405; J2590; J2795; J3010; J3475; J7120

== ENCOUNTER 2024-02-02 16:16 | Emergency (ER) | payer OTHER, SELFPAY ==
--- NOTE | 2024-02-02 16:32 | ED.URI ---
HPI - URI/Sore Throat General Chief Complaint: Upper Respiratory Infection Stated Complaint: CHEST CONGESTION Time Seen by Provider: 02/02/24 16:40 Source: patient and RN notes reviewed Mode of arrival: ambulatory Limitations: no limitations History of Present Illness HPI Narrative: 38-year-old female with history of asthma presents with concern for cough, chest congestion. Reports 3 day history of symptoms. Reports she started having chest congestion and on the 1st day and cough and drainage yesterday. She denies fever, aches, chills, sweats. Reports she has been using her inhaler more than usual. MD elicited complaint: cough Related Data Home Medications Medication Instructions Recorded Confirmed magnesium oxide 500 mg capsule 500 mg PO DAILY 01/02/23 02/02/24 mecobalamin (vitamin B12) 1,000 1,000 mcg PO DAILY 08/24/23 02/02/24 mcg chewable tablet Allergies Allergy/AdvReac Type Severity Reaction Status Date / Time No Known Allergies Allergy Verified 02/02/24 16:35 Review of Systems Review of Systems: CONSTITUTIONAL: Denies malaise, chills, sweats, or fever. EYES: Denies visual changes, redness, or discharge. ENT: Reports rhinorrhea, congestion CARDIOVASCULAR: Denies chest pain, palpitations, or edema. RESPIRATORY: Reports cough and chest congestion. Denies dyspnea. GASTROINTESTINAL: Denies abdominal pain, nausea, vomiting, diarrhea SKIN: Denies rash or itching. MUSCULOSKELETAL: Denies myalgia. NEUROLOGIC: Denies headache. All systems reviewed & are unremarkable except as noted in HPI and below PMFSH Past Medical History Medical History (Updated 02/02/24 @ 16:46 by Kayla Dennis NP) Abnormal echocardiogram Acute bronchitis Acute otitis media Asthma BMI 39.0-39.9,adult Body mass index (BMI) of 40.1 to 44.9 in adult Depression Elevated liver enzymes Elevated TSH Encounter to establish care Family history of breast cancer Fatigue Gestational diabetes Hyperlipidemia Hypersomnia Hypertension Migraines Mitral valve regurgitation Post-operative pain Prediabetes Screening for diabetes mellitus Severe preeclampsia (09/2020) Skin lesion Snoring Supervision of high risk , unspecified, third trimester Tricuspid valve regurgitation Vitamin D deficiency Surgical History Surgical History History of section (10/08/20) History of wisdom tooth extraction Family History Family History Mother Diabetes mellitus Hypertension Heart disease Thyroid disease Sibling Depression Grandparent Diabetes mellitus Hypertension Heart disease Grandparent Diabetes mellitus Hypertension Heart disease Other Family history of malignant neoplasm of breast Social History Social History Social History: Surrogate decision maker: Mynor Gruber, . Code status: Full code. Smoking status: Never smoker Second hand tobacco smoke exposure: No Alcohol intake: current Alcohol use details: rarely Substance use: never Substance use type: does not use Do You Feel Safe in your Home?: Yes Lack of Transportation: No Lack of Food: Never True Current Housing: I Have Housing Concerned About Future Housing: No Difficulty Paying Gas/Electric Bills: No Difficulty Paying for Meds: No Currently Unemployed: No Education: Trade/Vocational Certificate Difficulty w/ Childcare or Family Care: No Living arrangements: with family Occupation/Education: occupation Gender identity (if verbalized by the patient): Female Sexual Orientation (if Verbalized by the Patient): Straight or Heterosexual Spiritual care concerns: No Agree to blood products: Yes Comments At time of signature, agree with nursing past medical, surgical, social and family history. There is no relevant family history pertinent to the presenting complaint Exam Narrative: GENERAL: Well-appearing, well-nourished, and in no acute distress. HEAD: Normocephalic EYES: PERRLA, conjunctivae clear ENT: Nares clear, turbinates edematous and erythematous, clear discharge. Mucous membranes moist. TM pearly neal with dull light reflex bilaterally; no tragal tenderness. Oropharynx not erythematous without lesions. Tonsils not enlarged and without exudate, no drooling, no hoarseness, no trismus, uvula midline. NECK: Supple. No lymphadenopathy CHEST: Clear to auscultation, breath sounds equal. No wheezing, rhonchi, rales, or stridor. No respiratory distress, speaks in full sentences. HEART: Regular rate and rhythm. No murmur heard. SKIN: Warm, dry, no rash. NEURO: Alert and oriented x3. PSYCH: Normal mood and affect Course Course Emergency Course: Patient is aware of diagnosis, understands and agrees to treatment plan. Anticipatory guidance given. Patient agrees to follow-up as directed and is aware of reasons to seek care at the emergency department. Portions of this record may have been created with voice recognition software Level of Care: Express Care Visit Vital Signs Vital signs: Vital Signs Temperature 97.8 F 02/02/24 16:36 Pulse Rate 90 02/02/24 16:36 Respiratory Rate 17 02/02/24 16:36 Blood Pressure 124/73 02/02/24 16:36 Pulse Oximetry 98 02/02/24 16:36 Oxygen Delivery Room Air 02/02/24 16:36 Temperature 97.8 F 02/02/24 16:36 Pulse Rate 90 02/02/24 16:36 Respiratory Rate 17 02/02/24 16:36 Blood Pressure 124/73 02/02/24 16:36 Pulse Oximetry 98 02/02/24 16:36 Oxygen Delivery Room Air 02/02/24 16:36 Reviewed. MDM - URI/Sore Throat MDM Narrative Medical decision making narrative: Differential diagnosis considered: Duffy virus, strep pharyngitis, allergic rhinitis, upper respiratory tract infection, sinusitis, rhinosinusitis, nasopharyngitis. viral pharyngitis, otitis media, otitis externa, pneumonia, bronchitis, viral cough syndrome, viral syndrome, and influenza. Exam findings show no acute concerns or changes; patient is non-toxic appearing and is in no distress. Patient is appropriate for outpatient treatment and follow-up. Lab Data Attestation: I reviewed the patient's lab results. Critical Care Time Critical Care Time Critical Care Time: No Discharge Plan Discharge Clinical Impression: Asthma exacerbation Patient Disposition: Home, Self-Care Condition: Stable Instructions: Asthma (ED) Additional Instructions: Take medicines as directed. Visit your primary care doctor if: You have wheezing, shortness of breath, or a cough even if taking medicine to prevent attacks. You have thickening of sputum. Your sputum changes from clear or white to yellow, green, neal, or bloody. You have any problems that may be related to the medicines you are taking (such as a rash, itching, swelling, or trouble breathing). You are using a reliever medicine more than 2 to 3 times per week. Visit the ER if: You are short of breath even at rest or when doing very little physical activity. You develop difficulty eating, drinking, or talking due to asthma symptoms. You have chest pain or you feel that your heart is beating fast. You are lightheaded, dizzy, faint or have bluish lips or fingernails. You have a fever or persistent symptoms for more than 2 to 3 days or symptoms suddenly get worse. You seem to be getting worse and are unresponsive to treatment during an asthma attack. Prescriptions: New prednisone 20 mg tablet 40 mg PO DAILY 5 Days Qty: 10 0RF No Action buspirone 7.5 mg tablet 7.5 mg PO BID Qty: 60 5RF Rx Instructions: start 1 tab daily x3 days, then can increase to 2x/day magnesium oxide 500 mg capsule 500 mg PO DAILY albuterol sulfate 90 mcg/actuation HFA aerosol inhaler 1 - 2 inh inhalation Q4H PRN (Reason: shortness of breath or wheezing) Qty: 8.5 5RF ergocalciferol (vitamin D2) 1,250 mcg (50,000 unit) capsule 1,250 mcg PO .[id number] Qty: 6 3RF mecobalamin (vitamin B12) 1,000 mcg tablet,chewable 1,000 mcg PO DAILY fluticasone propionate [Flonase Allergy Relief] 50 mcg/actuation spray,suspension 1 spray intranasal BID Qty: 16 1RF Rx Instructions: administer into each nostril amlodipine 10 mg tablet 10 mg PO DAILY Qty: 90 3RF metoprolol succinate 100 mg tablet extended release 24 hr 100 mg PO DAILY Qty: 90 3RF montelukast 10 mg tablet 10 mg PO QHS Qty: 90 3RF Follow-up/Referrals: Stephanie Baer NP [Primary Care Provider] - Time of Disposition: 16:47
[2024-02-02 16:36] VITALS: BP 124/73; PULSE 90; RESP 17; TEMP 36.6; O2SAT 98
[2024-02-02 16:41] VITALS: BP 124/73; PULSE 90; RESP 17; TEMP 36.6; O2SAT 98
== END 2024-02-02 16:48 | disposition home or self-care (01) ==
PROVIDERS: Emergency Provider Nurse Practitioner; PCP Nurse Practitioner Family
DX: J45.901 Unspecified asthma with (acute) exacerbation (principal); E78.5 Hyperlipidemia, unspecified; I10 Essential (primary) hypertension; I34.1 Nonrheumatic mitral (valve) prolapse; R73.03 Prediabetes
CPT/HCPCS: 99213; G0463